=== PATIENT | male | born 1950 | race Caucasian/White ===

== ENCOUNTER 2019-10-08 09:07 | Outpatient (CLI) | payer MEDICARE ==
--- NOTE | 2019-10-08 12:24 | MRI ---
MRI RIGHT HIP: Date: 10/08/2019 PROVIDED CLINICAL HISTORY: Right hip pain. FINDINGS: The right hip flexor, abductor, adductor, and hamstring tendons demonstrate an intact MR appearance C ommon hamstring tendon origin tendinosis changes are demonstrated. There is articular cartilage loss involving the superior weightbearing portions of the right hip join t, including areas of apparent full thickness articular cartilage loss. There is extensive subcortica l cyst-like change within the acetabulum, as well as to a lesser extent within the femoral head. Dege nerative tearing of the acetabular labrum is also suspected, suboptimally evaluated on the basis of t his study. The amount of fluid within the right hip joint appears physiologic. No focal concerning regional marrow or muscular signal abnormality apparent. Partially visualized tra nsplant/pelvic kidney right of midline. The courses of the regional major neurovascular structures ap pear unremarkable. 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 POS: MICHELLE
== END 2019-10-08 09:08 | disposition home or self-care (01) ==
LOC: BICMRI 09:07
PROVIDERS: ATTEND Internal Medicine Nephrology
DX: M25.551 Pain in right hip (principal); M16.11 Unilateral primary osteoarthritis, right hip
CPT/HCPCS: 82565

== ENCOUNTER 2022-10-14 17:58 | Inpatient (IN) | payer MEDICARE ==
[2022-10-14 19:07] LABS: #Monocytes 1.6 thou/uL (0.11-0.59); #Neutrophils 15.4 thou/uL (1.40-6.50); %Basophils 0.2 % (0.0-1.0); %Eosinophils 0.1 % (0.0-10.0); %Lymphocytes 6.6 % (21.0-51.0); %Monocytes 8.9 % (0.0-10.0); %Neutrophils 83.4 % (42.0-75.0); Hemoglobin 13.1 g/dL (14.0-18.0); Mean Corpuscular HGB CONC 31.3 g/dL (32.0-36.0); Mean Corpuscular Hemoglobin 28.8 pg (27.0-31.0); Mean Corpuscular Volume 92.1 fl (78.0-98.0); Mean Platelet Volume 10.2 fL (7.4-10.4); Platelet Count 226 10x3/uL (130-400); RBC Distribution Width 13.5 % (11.5-14.5); Red Blood Cell (RBC) Count 4.55 mill/uL (4.70-6.10); White Blood Cell (WBC) Count 18.4 10x3/uL (4.8-10.8)
[2022-10-14 19:31] LABS: ALT (SGPT) 11 U/L (8-55); AST (SGOT) 13 U/L (5-34); Albumin 3.7 g/dL (3.4-4.8); Alkaline Phosphatase 66 U/L (40-110); Anion Gap 14 mmol/L (10-20); BUN (Urea Nitrogen) 31 mg/dL (8.4-25.7); Calc. Creatinine Clearance 0 mL/min (70-130); Calcium 9.2 mg/dL (7.8-10.44); Carbon Dioxide 24 mmol/L (23-31); Chloride 100 mmol/L (98-107); Estimated GFR 38; Globulin 2.4 g/dL (2.4-3.5); Glucose 198 mg/dL (83-110); Potassium 4.6 mmol/L (3.5-5.1); Protein, Total 6.1 g/dL (5.8-8.1); Sodium 133 mmol/L (136-145)
[2022-10-14] MEDS ORDERED: Ondansetron PF 4 MG/2 ML Vial IVP PRN (23:29)
[2022-10-14] MEDS ORDERED: Sodium Chloride 0.9% 1,000 ML IV SCH (23:30)
[2022-10-14] MEDS ORDERED: Dextrose 5% in Water 1,000 ML IV PRN (23:31)
[2022-10-14] MEDS ORDERED: Glucagon 1 MG/ML KIT IM PRN (23:31)
[2022-10-14] MEDS ORDERED: Dextrose 50% Abboject 50 ML SYRINGE SLOW IVP PRN (23:31)
[2022-10-15 01:55] VITALS: BMI 27.6
[2022-10-15 05:17] LABS: #Monocytes 1.9 thou/uL (0.11-0.59); #Neutrophils 13.1 thou/uL (1.40-6.50); %Basophils 0.2 % (0.0-1.0); %Eosinophils 0.2 % (0.0-10.0); %Lymphocytes 7.9 % (21.0-51.0); %Monocytes 11.7 % (0.0-10.0); %Neutrophils 79.5 % (42.0-75.0); Hemoglobin 13.1 g/dL (14.0-18.0); Mean Corpuscular HGB CONC 32.3 g/dL (32.0-36.0); Mean Corpuscular Hemoglobin 29.5 pg (27.0-31.0); Mean Corpuscular Volume 91.4 fl (78.0-98.0); Mean Platelet Volume 10.4 fL (7.4-10.4); Platelet Count 191 10x3/uL (130-400); RBC Distribution Width 13.5 % (11.5-14.5); Red Blood Cell (RBC) Count 4.44 mill/uL (4.70-6.10); White Blood Cell (WBC) Count 16.4 10x3/uL (4.8-10.8)
[2022-10-15 05:40] LABS: Anion Gap 13 mmol/L (10-20); BUN (Urea Nitrogen) 25 mg/dL (8.4-25.7); Calc. Creatinine Clearance 63 mL/min (70-130); Calcium 8.7 mg/dL (7.8-10.44); Carbon Dioxide 21 mmol/L (23-31); Chloride 107 mmol/L (98-107); Estimated GFR 57; Glucose 114 mg/dL (83-110); Potassium 3.9 mmol/L (3.5-5.1); Sodium 137 mmol/L (136-145)
[2022-10-15] MEDS ORDERED: Mycophenolate DR 180 MG TAB PO SCH (10:45)
[2022-10-15] MEDS: predniSONE 5 MG TAB PO SCH (10:47)
[2022-10-15] MEDS: HumaLOG 300 UNITS/3 ML VIAL SC PRN ×2 (10:54→17:59)
[2022-10-15] MEDS ORDERED: Atropine Sulfate 1% Ophth Soln 5 ml Bottle R EYE SCH (12:00)
[2022-10-15] MEDS ORDERED: BRIMONIDINE TARTRATE 0.2% L EYE SCH (12:00)
[2022-10-15] MEDS ORDERED: DorzolamidE/Timolol 2%/0.5% Ophth Soln 10 ml Bottle L EYE SCH (12:00)
[2022-10-15] MEDS: Prednisolone Acet 1% Eye Drop R EYE SCH ×3 (12:10→20:35)
[2022-10-15] MEDS ORDERED: Midodrine HCl 5 MG TAB PO SCH (15:15)
[2022-10-15] MEDS: Ciprofloxacin 0.3% Ophth Soln 2.5 ml Bottle R EYE SCH ×2 (16:38→20:36)
[2022-10-15] MEDS: Carvedilol 6.25 MG TAB PO SCH (20:32)
[2022-10-15] MEDS: Atorvastatin Calcium 10 MG TAB PO SCH (20:32)
[2022-10-15] MEDS: Midodrine HCl 5 MG TAB PO SCH (20:32)
[2022-10-15] MEDS: Mycophenolate DR 180 MG TAB PO SCH (20:33)
[2022-10-15] MEDS: Tacrolimus 1 MG CAP PO SCH (20:33)
[2022-10-15] MEDS: BRIMONIDINE TARTRATE 0.2% L EYE SCH (20:34)
[2022-10-15] MEDS: Atropine Sulfate 1% Ophth Soln 5 ml Bottle R EYE SCH (20:35)
[2022-10-15] MEDS: DorzolamidE/Timolol 2%/0.5% Ophth Soln 10 ml Bottle L EYE SCH (20:35)
[2022-10-15] MEDS: Acetaminophen 325 MG TAB PO PRN (20:41)
[2022-10-16 01:25] LABS: Bilirubin Negative (Negative); Blood, Urine Negative (Negative); CAUTI Indications for Culture Dysuria,urgency,freq; Clarity Clear (Clear); Glucose, Urine (Dipstick) 100 mg/dL (Negative); Ketone, Urine Trace mg/dL (Negative); Leukocyte 25 Leu/uL (Negative); Nitrite Negative (Negative); Protein, Urine (Dipstick) 10 mg/dL (Neg-Trace); RBC/HPF 0-3 HPF (0-3); Specific Gravity, Urine 1.011 (1.002-1.036); Squamous Epithelial 0-3 HPF (0-3); Urobilinogen Normal mg/dL (Less than 2)
[2022-10-16 01:31] LABS: Bacteria/HPF 1+ HPF (None Seen)
[2022-10-16 01:32] LABS: Urine Culture Reflex No No
[2022-10-16 05:26] LABS: #Basophils 0.1 thou/uL (0.0-0.2); #Eosinphils 0.1 thou/uL (0.0-0.7); #Neutrophils 12.4 thou/uL (1.40-6.50); %Basophils 0.3 % (0.0-1.0); %Eosinophils 0.3 % (0.0-10.0); %Lymphocytes 7.6 % (21.0-51.0); %Monocytes 12.9 % (0.0-10.0); %Neutrophils 78.4 % (42.0-75.0); Hemoglobin 13.4 g/dL (14.0-18.0); Mean Corpuscular Hemoglobin 28.9 pg (27.0-31.0); Mean Corpuscular Volume 90.5 fl (78.0-98.0); Mean Platelet Volume 10.2 fL (7.4-10.4); Platelet Count 174 10x3/uL (130-400); RBC Distribution Width 13.5 % (11.5-14.5); Red Blood Cell (RBC) Count 4.63 mill/uL (4.70-6.10); White Blood Cell (WBC) Count 15.8 10x3/uL (4.8-10.8)
[2022-10-16 05:50] LABS: Anion Gap 10 mmol/L (10-20); BUN (Urea Nitrogen) 17 mg/dL (8.4-25.7); Calc. Creatinine Clearance 63 mL/min (70-130); Calcium 9.2 mg/dL (7.8-10.44); Carbon Dioxide 23 mmol/L (23-31); Chloride 102 mmol/L (98-107); Estimated GFR 58; Glucose 194 mg/dL (83-110); Potassium 4.1 mmol/L (3.5-5.1); Sodium 131 mmol/L (136-145)
[2022-10-16] MEDS: HumaLOG 300 UNITS/3 ML VIAL SC PRN ×4 (06:00→22:04)
[2022-10-16] MEDS: Acetaminophen 325 MG TAB PO PRN (08:04)
[2022-10-16] MEDS: Mycophenolate DR 180 MG TAB PO SCH ×2 (08:05→22:01)
[2022-10-16] MEDS: Calcitriol 0.25 MCG CAP PO SCH (08:06)
[2022-10-16] MEDS: Carvedilol 6.25 MG TAB PO SCH ×2 (08:07→22:02)
[2022-10-16] MEDS: Tacrolimus 1 MG CAP PO SCH ×2 (08:07→22:01)
[2022-10-16] MEDS: predniSONE 5 MG TAB PO SCH (08:08)
[2022-10-16] MEDS: Magnesium Oxide 400 MG TAB PO SCH (08:08)
[2022-10-16] MEDS: Midodrine HCl 5 MG TAB PO SCH ×3 (08:09→22:04)
[2022-10-16] MEDS: Cholecalciferol 1,000 UNITS (25 MCG) TAB PO SCH (08:09)
[2022-10-16] MEDS: Ciprofloxacin 0.3% Ophth Soln 2.5 ml Bottle R EYE SCH ×4 (08:09→22:03)
[2022-10-16] MEDS: Aspirin 81 mg Enteric Coated Tablet PO SCH (08:09)
[2022-10-16] MEDS: Atropine Sulfate 1% Ophth Soln 5 ml Bottle R EYE SCH ×2 (08:18→22:03)
[2022-10-16] MEDS: BRIMONIDINE TARTRATE 0.2% L EYE SCH ×2 (08:19→22:03)
[2022-10-16] MEDS: DorzolamidE/Timolol 2%/0.5% Ophth Soln 10 ml Bottle L EYE SCH ×2 (08:19→22:03)
[2022-10-16] MEDS: Prednisolone Acet 1% Eye Drop R EYE SCH ×4 (08:19→22:03)
[2022-10-16] MEDS ORDERED: DULoxetine 60 MG CAP PO SCH (09:00)
[2022-10-16] MEDS ORDERED: Tamsulosin HCl 0.4 MG CAP PO SCH (09:00)
[2022-10-16] MEDS: cefTRIAXone\\ROCEPHIN 1 GM in Sodium Chloride 0.9% 100 ML IVPB SCH (10:46)
[2022-10-16] MEDS ORDERED: Insulin Glargine 30 UNITS/0.3 ML VIAL SC SCH (18:00)
[2022-10-16] MEDS: Atorvastatin Calcium 10 MG TAB PO SCH (22:02)
[2022-10-17 05:14] LABS: #Eosinphils 0.1 thou/uL (0.0-0.7); #Monocytes 1.9 thou/uL (0.11-0.59); #Neutrophils 11.8 thou/uL (1.40-6.50); %Basophils 0.2 % (0.0-1.0); %Eosinophils 0.5 % (0.0-10.0); %Lymphocytes 8.3 % (21.0-51.0); %Monocytes 12.5 % (0.0-10.0); %Neutrophils 77.9 % (42.0-75.0); Hemoglobin 13.3 g/dL (14.0-18.0); Mean Corpuscular HGB CONC 32.9 g/dL (32.0-36.0); Mean Corpuscular Volume 91.2 fl (78.0-98.0); Mean Platelet Volume 10.2 fL (7.4-10.4); Platelet Count 197 10x3/uL (130-400); RBC Distribution Width 13.3 % (11.5-14.5); Red Blood Cell (RBC) Count 4.43 mill/uL (4.70-6.10); White Blood Cell (WBC) Count 15.1 10x3/uL (4.8-10.8)
[2022-10-17 05:41] LABS: Anion Gap 14 mmol/L (10-20); BUN (Urea Nitrogen) 28 mg/dL (8.4-25.7); Calc. Creatinine Clearance 53 mL/min (70-130); Calcium 9.3 mg/dL (7.8-10.44); Carbon Dioxide 21 mmol/L (23-31); Chloride 103 mmol/L (98-107); Estimated GFR 48; Glucose 251 mg/dL (83-110); Potassium 4.2 mmol/L (3.5-5.1); Sodium 134 mmol/L (136-145)
[2022-10-17] MEDS: HumaLOG 300 UNITS/3 ML VIAL SC PRN ×4 (06:30→20:47)
[2022-10-17] MEDS ORDERED: Insulin Glargine 30 UNITS/0.3 ML VIAL SC SCH ×2 (09:00→21:00)
[2022-10-17] MEDS: Tamsulosin HCl 0.4 MG CAP PO SCH (09:01)
[2022-10-17] MEDS: Sodium Chloride 0.9% 1,000 ML IV SCH ×2 (09:01→16:48)
[2022-10-17] MEDS: Tacrolimus 1 MG CAP PO SCH ×2 (09:02→20:21)
[2022-10-17] MEDS: Midodrine HCl 5 MG TAB PO SCH ×3 (09:03→20:21)
[2022-10-17] MEDS: Aspirin 81 mg Enteric Coated Tablet PO SCH (09:04)
[2022-10-17] MEDS: Magnesium Oxide 400 MG TAB PO SCH (09:04)
[2022-10-17] MEDS: predniSONE 5 MG TAB PO SCH (09:05)
[2022-10-17] MEDS: Calcitriol 0.25 MCG CAP PO SCH (09:05)
[2022-10-17] MEDS: Cholecalciferol 1,000 UNITS (25 MCG) TAB PO SCH (09:05)
[2022-10-17] MEDS: Mycophenolate DR 180 MG TAB PO SCH ×2 (09:06→20:36)
[2022-10-17] MEDS: DorzolamidE/Timolol 2%/0.5% Ophth Soln 10 ml Bottle L EYE SCH ×2 (09:07→20:24)
[2022-10-17] MEDS: BRIMONIDINE TARTRATE 0.2% L EYE SCH ×2 (09:08→20:25)
[2022-10-17] MEDS: Atropine Sulfate 1% Ophth Soln 5 ml Bottle R EYE SCH ×2 (09:09→20:23)
[2022-10-17] MEDS: Ciprofloxacin 0.3% Ophth Soln 2.5 ml Bottle R EYE SCH ×4 (09:09→20:24)
[2022-10-17] MEDS: Prednisolone Acet 1% Eye Drop R EYE SCH ×4 (09:10→20:23)
[2022-10-17] MEDS: cefTRIAXone\\ROCEPHIN 1 GM in Sodium Chloride 0.9% 100 ML IVPB SCH (09:12)
[2022-10-17] MEDS: Insulin Glargine 30 UNITS/0.3 ML VIAL SC SCH (09:30)
[2022-10-17] MEDS: Atorvastatin Calcium 10 MG TAB PO SCH (20:22)
[2022-10-18] MEDS: Sodium Chloride 0.9% 1,000 ML IV SCH ×2 (02:29→08:35)
[2022-10-18 05:26] LABS: Anion Gap 13 mmol/L (10-20); BUN (Urea Nitrogen) 24 mg/dL (8.4-25.7); Calc. Creatinine Clearance 66 mL/min (70-130); Carbon Dioxide 20 mmol/L (23-31); Chloride 106 mmol/L (98-107); Estimated GFR 62; Glucose 239 mg/dL (83-110); Potassium 4.4 mmol/L (3.5-5.1); Sodium 135 mmol/L (136-145)
[2022-10-18] MEDS: Tamsulosin HCl 0.4 MG CAP PO SCH (08:36)
[2022-10-18] MEDS: Mycophenolate DR 180 MG TAB PO SCH (08:37)
[2022-10-18] MEDS: predniSONE 5 MG TAB PO SCH (08:37)
[2022-10-18] MEDS: Tacrolimus 1 MG CAP PO SCH (08:37)
[2022-10-18] MEDS: Aspirin 81 mg Enteric Coated Tablet PO SCH ×2 (08:37→08:38)
[2022-10-18] MEDS: Cholecalciferol 1,000 UNITS (25 MCG) TAB PO SCH (08:37)
[2022-10-18] MEDS: Insulin Glargine 30 UNITS/0.3 ML VIAL SC SCH (08:38)
[2022-10-18] MEDS: Calcitriol 0.25 MCG CAP PO SCH (08:38)
[2022-10-18] MEDS: Ciprofloxacin 0.3% Ophth Soln 2.5 ml Bottle R EYE SCH (08:39)
[2022-10-18] MEDS: Atropine Sulfate 1% Ophth Soln 5 ml Bottle R EYE SCH (08:40)
[2022-10-18] MEDS: DorzolamidE/Timolol 2%/0.5% Ophth Soln 10 ml Bottle L EYE SCH (08:40)
[2022-10-18] MEDS: BRIMONIDINE TARTRATE 0.2% L EYE SCH (08:40)
[2022-10-18] MEDS: Prednisolone Acet 1% Eye Drop R EYE SCH (08:41)
[2022-10-18] MEDS: Midodrine HCl 5 MG TAB PO SCH (08:52)
[2022-10-18] MEDS: Acetaminophen 325 MG TAB PO PRN (08:53)
[2022-10-18] MEDS: cefTRIAXone\\ROCEPHIN 1 GM in Sodium Chloride 0.9% 100 ML IVPB SCH (09:00)
[2022-10-18] MEDS ORDERED: Fludrocortisone Acetate 0.1 MG TAB PO SCH (09:00)
[2022-10-18] MEDS: Magnesium Oxide 400 MG TAB PO SCH (12:16)
[2022-10-18 12:25] VITALS: TEMP 98.1
[2022-10-18 13:20] VITALS: BP 124/68
== END 2022-10-18 13:17 | disposition home or self-care (01) | DRG 312 ==
LOC: ERS 17:58 → 2SW 23:31 → OBSVTOIN 10-15 15:23
PROVIDERS: ADMIT Internal Medicine; ATTEND Internal Medicine
DX: I95.1 Orthostatic hypotension (principal); N17.9 Acute kidney failure, unspecified; N39.0 Urinary tract infection, site not specified; Z16.11 Resistance to penicillins; T86.19 Other complication of kidney transplant; I12.9 Hypertensive chronic kidney disease with stage 1 through stage 4 chronic kidney disease, or unspecified chronic kidney disease; E11.22 Type 2 diabetes mellitus with diabetic chronic kidney disease; R91.1 Solitary pulmonary nodule; E11.42 Type 2 diabetes mellitus with diabetic polyneuropathy; K21.9 Gastro-esophageal reflux disease without esophagitis; E78.5 Hyperlipidemia, unspecified; E86.9 Volume depletion, unspecified; N40.1 Benign prostatic hyperplasia with lower urinary tract symptoms; R35.0 Frequency of micturition; Y83.8 Other surgical procedures as the cause of abnormal reaction of the patient, or of later complication, without mention of misadventure at the time of the procedure; W18.30XA Fall on same level, unspecified, initial encounter; B96.1 Klebsiella pneumoniae [K. pneumoniae] as the cause of diseases classified elsewhere; N18.2 Chronic kidney disease, stage 2 (mild); S00.03XA Contusion of scalp, initial encounter; Z79.82 Long term (current) use of aspirin; Z79.4 Long term (current) use of insulin; Z98.890 Other specified postprocedural states; Z98.61 Coronary angioplasty status; Z79.52 Long term (current) use of systemic steroids
CPT/HCPCS: 36415; 36416; 70450; 71045; 72125; 80048; 80053; 81001; 82533; 84484; 85025; 87077; 87086; 87186; 93005; 93306; 96360; 96361; G0378; J0696; J1815; J3490; J7050; J7507; J7512; J7518